=== PATIENT | female | born 1970 | race Caucasian/White ===

== ENCOUNTER 2017-01-06 03:48 | Emergency (ER) | payer BC ==
[~2017-01-06] VITALS: Ht 152.4 cm; Wt 77.0 kg
[~2017-01-06 03:48] MED LIST: NAPR220C PO; OMEP10CA4 PO
[2017-01-06 04:13] VITALS: Ht 152.4 cm; Wt 77.0 kg
--- NOTE | 2017-01-06 04:16 | ERA ---
ER Documentation Chief Complaint Date/Time DATE: 01/06/17 TIME: 04:15 Chief Complaint Headache HPI The patient is a 46-year-old female, presenting with diffuse headache, right eye redness for 1 day. She denies fever, chills complains of subjective fever, denies chills, eye pain, eye discharge, neck pain, chest pain, dyspnea, abdominal pain, vomiting, dysuria, diarrhea. She does not smoke does not drink Past medical/surgical history: None ROS All systems reviewed and are negative except as per history of present illness. Medications Home Meds Active Scripts Ibuprofen* (Motrin*) 600 Mg Tab, 600 MG PO Q6, #20 TAB Prov:CHRISTINA GUEVARA MD 01/06/17 Reported Medications Omeprazole* (Omeprazole*) 10 Mg Capsule.dr, 10 MG PO DAILY, CAP 07/04/14 Discontinued Reported Medications Naproxen* (Naproxen*) 220 Mg Capsule, 220 MG PO BID, CAP 07/04/14 Allergies Allergies: Coded Allergies: Penicillins (Unverified Allergy, Mild, 01/06/17) PMhx/Soc History of Surgery: No Anesthesia Reaction: No Hx Neurological Disorder: No Hx Respiratory Disorders: No Hx Cardiac Disorders: No Hx Psychiatric Problems: No Hx Miscellaneous Medical Probl: No Hx Alcohol Use: No Hx Substance Use: No Hx Tobacco Use: No Physical Exam Vitals Vital Signs Date Time Temp Pulse Resp B/P Pulse Ox O2 Delivery O2 Flow Rate FiO2 01/06/17 06:00 98.7 73 18 117/75 99 Room Air 01/06/17 04:13 98.3 69 18 139/95 98 Physical Exam Const: No acute distress. Head: Atraumatic. Eyes: Minimal erythema on right medial conjunctiva, no discharge, no eye entrapment ENT: Normal External Ears, Nose and Mouth. Neck: Full range of motion. No meningismus. Resp: Clear to auscultation bilaterally. Cardio: Regular rate and rhythm. Abd: Soft, non distended, normal bowel sounds, non tender. Skin: No petechiae or rashes. Back: No midline or flank tenderness. Ext: No cyanosis, or edema. Neur: Awake and alert. No focal deficit Psych: Normal Mood and Affect. Result Diagram: 01/06/17 0450 01/06/17 045 Results 24 hrs Laboratory Tests Test 01/06/17 04:29 01/06/17 04:50 Bedside Urine pH (LAB) 5.0 Bedside Urine Protein (LAB) Negative Bedside Urine Glucose (UA) Negative Bedside Urine Ketones (LAB) Negative Bedside Urine Blood Trace-lysed Bedside Urine Nitrite (LAB) Negative Bedside Urine Leukocyte Esterase (L Negative White Blood Count 11.510^3/ul Red Blood Count 4.4710^6/ul Hemoglobin 13.2g/dl Hematocrit 40.5% Mean Corpuscular Volume 90.6fl Mean Corpuscular Hemoglobin 29.5pg Mean Corpuscular Hemoglobin Concent 32.6g/dl Red Cell Distribution Width 12.7% Platelet Count 32578^3/UL Mean Platelet Volume 10.0fl Neutrophils % 61.7% Lymphocytes % 30.8% Monocytes % 5.2% Eosinophils % 1.6% Basophils % 0.3% Nucleated Red Blood Cells % 0.0/100WBC Neutrophils # 7.110^3/ul Lymphocytes # 3.610^3/ul Monocytes # 0.610^3/ul Eosinophils # 0.210^3/ul Basophils # 0.010^3/ul Nucleated Red Blood Cells # 0.010^3/ul Prothrombin Time 12.7Sec Prothrombin Time Ratio 1.0 INR International Normalized Ratio 0.95 Activated Partial Thromboplast Time 27.8Sec Sodium Level 141mmol/L Potassium Level 3.8mmol/L Chloride Level 109mmol/L Carbon Dioxide Level 24mmol/L Anion Gap 12 Blood Urea Nitrogen 10mg/dl Creatinine 0.69mg/dl Glucose Level 103mg/dl Calcium Level 9.4mg/dl Current Medications Medications (Trade) Dose Ordered Sig/[place] Route PRN Reason Start Time Stop Time Status Last Admin Dose Admin Morphine Sulfate (morphine) 2 mg ONCE ONCE IV 01/06/17 05:00 01/06/17 05:01 DC 01/06/17 05:00 Ondansetron HCl (Zofran Inj) 4 mg ONCE STAT IV 01/06/17 04:54 01/06/17 04:55 DC 01/06/17 05:00 Procedures/[place] [id number] Radiology Main Line: [phone] DIAGNOSTIC IMAGING REPORT Patient: MARCY WESTON : 1970 Age: 46 Sex: F [id number] DOS: 01/06/17 0432 Ordering MD: CHRISTINA GUEVARA MD Location: E/R Room/Bed: PROCEDURE: CT BRAIN WITHOUT CONTRAST CLINICAL INDICATION: 46-year-old female with headaches. TECHNIQUE: The study was performed utilizing a [id number] VCT 64-slice CT scanner. Direct axial sections were obtained from the foramen magnum to the vertex without the use of intravenous contrast material. Sagittal and coronal reformations were obtained. One or more the following dose reduction techniques were utilized: automated exposure control, adjustment of the mA and/or kV according to patient's size or use of iterative reconstruction technique. The images were viewed on a PACS workstation. CTD/vol = 45.0 mGy; Total Exam DLP = 720.2 mGy-cm. COMPARISON: CT brain October 25, 2008. FINDINGS: The ventricles have a normal size, shape and position. There is no evidence for mass effect or midline shift. There are no intracranial areas of abnormal attenuation. There is no evidence for acute intra or extra-axial blood. The bony calvarium is intact. There is minimal mucosal thickening within the ethmoid air cells bilaterally. No air-fluid levels are noted. The mastoid air cells are without significant soft tissue. IMPRESSION: 1. The intracranial contents are unremarkable on this noncontrast CT scan of the brain. 2. Minimal mucosal thickening ethmoid air cells. .Jerry Gonzalez MD, MD Date Time Electronically viewed and signed by .Jerry Gonzalez MD, on 01/06/2017 05:08 .M/ CC: CHRISTINA GUEVARA MD MEDICAL MAKING DECISION: The patient is a 46-year-old female, presenting with acute cephalgia of unclear etiology. She was treated with morphine 2 mg IV for pain and Zofran 4 mg IV for now nausea with good response The differential diagnoses considered include but are not limited to subarachnoid hemorrhage, occult trauma, CVA, meningitis, encephalitis, hypertension, tension, migraine, cluster, narcotic withdrawal, cervical spine disease. Departure Diagnosis: Primary Impression: Headache Additional Impression: Redness of right eye Condition: Good Comments She was discharged with Motrin I discussed the findings with the patient. I advised the patient to follow-up with the primary physician and her die holder in about 1-2 days, sooner if needed and return if any concern. The patient's blood pressure was elevated (>120/80) but appears stable without evidence of hypertension emergency or urgency. The patient was counseled about the risks of hypertension and urged to pursue outpatient monitoring and therapy within a week with their primary care physician. CHRISTINA GUEVARA MD Jan 06, 2017 04:16
[2017-01-06 04:22] LABS: URINE BLOOD (Dip) POC Trace-lysed (NEGATIVE)
[2017-01-06] MEDS ORDERED: ONDANSETRON 4 MG INJ IV STA (04:54)
[2017-01-06 05:00] LABS: BASOPHILS % 0.3 % (0.0-2.0); EOSINOPHILS # 0.2 10^3/ul (0.0-0.5); EOSINOPHILS % 1.6 % (0.0-7.0); HEMATOCRIT 40.5 % (37.0-47.0); HEMOGLOBIN 13.2 g/dl (12.0-16.0); LYMPHOCYTES # 3.6 10^3/ul (0.8-2.9); LYMPHOCYTES % 30.8 % (15.0-51.0); MEAN CORPUSCULAR HEMOGLOBIN 29.5 pg (29.0-33.0); MEAN CORPUSCULAR HGB CONC 32.6 g/dl (32.0-37.0); MEAN CORPUSCULAR VOLUME 90.6 fl (82.0-101.0); MONOCYTE # 0.6 10^3/ul (0.3-0.9); MONOCYTES % 5.2 % (0.0-11.0); NEUTROPHIL # 7.1 10^3/ul (1.6-7.5); NEUTROPHILS % 61.7 % (39.0-77.0); PLATELET COUNT 290 10^3/UL (140-415); RED BLOOD COUNT 4.47 10^6/ul (4.20-5.40); RED CELL DISTRIBUTION WIDTH 12.7 % (11.5-14.5); WHITE BLOOD COUNT 11.5 10^3/ul (4.8-10.8)
[2017-01-06] MEDS ORDERED: morphine 2 MG INJ IV ONE (05:00)
--- NOTE | 2017-01-06 05:09 | RADRPT ---
PROCEDURE: CT BRAIN WITHOUT CONTRAST CLINICAL INDICATION: 46-year-old female with headaches. TECHNIQUE: The study was performed utilizing a [employer] VCT 64-slice CT scanner. Direct axia l sections were obtained from the foramen magnum to the vertex without the use of intravenous contra st material. Sagittal and coronal reformations were obtained. One or more the following dose reduct ion techniques were utilized: automated exposure control, adjustment of the mA and/or kV according t o patient's size or use of iterative reconstruction technique. The images were viewed on a PACS [employer]. CTD/vol = 45.0 mGy; Total Exam DLP = 720.2 mGy-cm. COMPARISON: CT brain October 25, 2008. FINDINGS: The ventricles have a normal size, shape and position. There is no evidence for mass effect or midl ine shift. There are no intracranial areas of abnormal attenuation. There is no evidence for acute intra or extra-axial blood. The bony calvarium is intact. There is minimal mucosal thickening withi n the ethmoid air cells bilaterally. No air-fluid levels are noted. The mastoid air cells are withou t significant soft tissue. IMPRESSION: 1. The intracranial contents are unremarkable on this noncontrast CT scan of the brain. 2. Minimal mucosal thickening ethmoid air cells. .Jerry Gonzalez MD, Date Time Electronically viewed and signed by .Jerry Gonzalez MD, on 01/06/2017 05:08 .M/
[2017-01-06 05:20] LABS: INR 0.95; PARTIAL THROMBOPLASTIN TIME 27.8 Sec (25.0-35.0); PROTIME 12.7 Sec (12.2-14.2)
[2017-01-06 05:24] LABS: CALCIUM 9.4 mg/dl (8.4-10.2); CREATININE 0.69 mg/dl (0.44-1.00); POTASSIUM 3.8 mmol/L (3.5-5.1)
[2017-01-06] MEDS ORDERED: IBUP-1542 PO (05:35)
[2017-01-06 06:00] VITALS: BP 117/75; PULSE 73; RESP 18; TEMP 98.7
== END 2017-01-06 06:00 | disposition home or self-care (01) ==
LOC: E/R 03:48
DX: R51 Headache (principal); H57.8 Other specified disorders of eye and adnexa
CPT/HCPCS: 36415; 70450; 80048; 81003; 85025; 85610; 85730; 96374; 96375; 99285; J2270; J2405